=== PATIENT | female | born 1970 | race Caucasian/White ===

== ENCOUNTER 2018-12-18 07:30 | Day surgery (SDC) | payer OTHER ==
[2018-12-18 09:02] LABS: ADD MAN DIFF? NO
[2018-12-18 09:03] LABS: BASOPHILS % 0.5 % (0.0-2.0); EOSINOPHILS # 0.1 10^3/ul (0.0-0.5); EOSINOPHILS % 2.8 % (0.0-7.0); HEMATOCRIT 41.6 % (37.0-47.0); HEMOGLOBIN 14.1 g/dl (12.0-16.0); LYMPHOCYTES # 1.6 10^3/ul (0.8-2.9); LYMPHOCYTES % 37.7 % (15.0-51.0); MEAN CORPUSCULAR HEMOGLOBIN 33.5 pg (29.0-33.0); MEAN CORPUSCULAR HGB CONC 33.9 g/dl (32.0-37.0); MEAN CORPUSCULAR VOLUME 98.8 fl (82.0-101.0); MONOCYTE # 0.3 10^3/ul (0.3-0.9); NEUTROPHIL # 2.2 10^3/ul (1.6-7.5); NEUTROPHILS % 50.8 % (39.0-77.0); PLATELET COUNT 186 10^3/UL (140-415); RED BLOOD COUNT 4.21 10^6/ul (4.20-5.40); RED CELL DISTRIBUTION WIDTH 11.9 % (11.5-14.5)
[2018-12-18 09:03] LABS: WHITE BLOOD COUNT 4.2 10^3/ul (4.8-10.8)
[2018-12-18 09:05] LABS: HOLD TRANSMISSIONS 1
[2018-12-18 09:20] LABS: ALANINE AMINOTRANSFERASE 79 IU/L (13-69); ALBUMIN 3.9 g/dl (3.3-4.9); ALBUMIN/GLOBULIN RATIO 1.11; ALKALINE PHOSPHATASE 55 IU/L (42-121); ANION GAP 6 (5-13); ASPARTATE AMINO TRANSFERASE 50 IU/L (15-46); BILIRUBIN,INDIRECT 0.4 mg/dl (0-1.1); BILIRUBIN,TOTAL 0.4 mg/dl (0.2-1.3); BLOOD UREA NITROGEN 8 mg/dl (7-20); CALCIUM 9.6 mg/dl (8.4-10.2); CARBON DIOXIDE 27 mmol/L (21-31); CHLORIDE 108 mmol/L (97-110); CREATININE 0.65 mg/dl (0.44-1.00); Estimated GFR > 60 mL/min (>60); GLUCOSE 103 mg/dl (70-220); POTASSIUM 4.3 mmol/L (3.5-5.1); SODIUM 141 mmol/L (135-144); TOTAL PROTEIN 7.4 g/dl (6.1-8.1)
[2018-12-18 09:23] LABS: INR 0.91; PROTIME 12.4 Sec (11.9-14.9)
[2018-12-18 09:24] LABS: PARTIAL THROMBOPLASTIN TIME 28.1 Sec (23.0-35.0)
[2018-12-18] MEDS ORDERED: SOD CHLORIDE 0.9% 1,000 ML IV (11:00)
[2018-12-18] MEDS ORDERED: CEFAZOLIN 2 GM/50 ML (PMX) 50 ML IVPB (11:00)
[2018-12-18] MEDS ORDERED: POLYMYXIN/BACITRACIN 1L IRRIG (11:20)
[2018-12-18] MEDS ORDERED: MIDAZOLAM 1 MG/ML 2 ML INJ (11:32)
[2018-12-18] MEDS ORDERED: PROPOFOL 20 ML (11:32)
[2018-12-18] MEDS ORDERED: ROCURONIUM 50 MG INJ (11:32)
[2018-12-18] MEDS ORDERED: SUCCINYLCHOLINE CHLORIDE 100 MG/5 ML SYG IV (11:32)
[2018-12-18] MEDS ORDERED: LIDOCAINE 2% (SDV) 5 ML INJ (11:32)
[2018-12-18] MEDS ORDERED: ROPIVACAINE 0.5 % 30 ML VIAL (11:38)
[2018-12-18] MEDS ORDERED: CEFAZOLIN 1 GM INJ (11:58)
[2018-12-18] MEDS ORDERED: ONDANSETRON 4 MG INJ (11:59)
[2018-12-18] MEDS ORDERED: SUGAMMADEX SODIUM 200 MG/2 ML VIAL IV (12:34)
[2018-12-18] MEDS ORDERED: PROVENTIL HFA 6.7GM INHALER (12:43)
[2018-12-18] MEDS: ONDANSETRON 4 MG INJ IV (13:52)
[2018-12-18] MEDS: HYDROmorphONE 1 MG/5 ML IV SYRINGE IV (13:53)
[2018-12-18] MEDS ORDERED: ALBUMIN HUMAN 5% 250 ML IV (14:00)
[2018-12-18] MEDS ORDERED: EPHEDrine 25 MG/5 ML SYG IV (14:00)
[2018-12-18] MEDS ORDERED: FENTAnyl 50 MCG/ML VIAL IV ×2 (14:00)
[2018-12-18] MEDS ORDERED: HYDROmorphONE 1 MG/5 ML IV SYRINGE IV ×2 (14:00)
[2018-12-18] MEDS ORDERED: hydrALAzine 20 MG INJ IV (14:00)
[2018-12-18] MEDS: HYDROCODONE/APAP (5/325) TAB PO (15:19)
[2018-12-18] MEDS: METOCLOPRAMIDE 10 MG INJ IV (16:06)
[2018-12-18] MEDS: ACETAMINOPHEN 500 MG TAB PO (16:40)
== END 2018-12-18 17:22 | disposition home or self-care (01) ==
LOC: SDS 07:30
DX: K43.6 Other and unspecified ventral hernia with obstruction, without gangrene (principal)
CPT/HCPCS: 49653; 71045; 80053; 84703; 85025; 85610; 85730; 88302; 93005